=== PATIENT | female | born 1960 | race Caucasian/White ===

== ENCOUNTER 2023-09-10 06:40 | Day surgery (SDC) | payer MEDICARE, OTHER, SELFPAY ==
[2023-09-10 10:59] VITALS: BMI 29.7
[2023-09-10 11:00] VITALS: BMI 29.7
[2023-09-10 11:01] VITALS: BP 128/75
[2023-09-10 12:46] VITALS: BP 103/66
[2023-09-10 13:00] VITALS: BP 116/72
[2023-09-10 13:15] VITALS: BP 103/50
== END 2023-09-10 13:31 | disposition home or self-care (01) ==
LOC: SDS 06:40
PROVIDERS: ATTENDING PHYSICIAN Internal Medicine Gastroenterology
DX: K31.5 Obstruction of duodenum (principal); K22.2 Esophageal obstruction
CPT/HCPCS: 43245; C1726

== ENCOUNTER → 2023-10-08 09:38 | Outpatient (REF) | payer MEDICARE, OTHER, SELFPAY | LOC: RAD 09:38 | PROVIDERS: ATTENDING PHYSICIAN Family Medicine | DX: R91.1 Solitary pulmonary nodule (principal) | CPT/HCPCS: 71250 ==

== ENCOUNTER → 2023-10-12 10:39 | Outpatient (REF) | payer MEDICARE, OTHER, SELFPAY | LOC: RCS 10:39 | PROVIDERS: ATTENDING PHYSICIAN Family Medicine | DX: R06.09 Other forms of dyspnea (principal) | CPT/HCPCS: 93306 ==

== ENCOUNTER 2023-10-12 12:54 | Emergency (ER) | payer MEDICARE, OTHER, SELFPAY ==
[2023-10-12 13:08] VITALS: BP 155/97
--- NOTE | 2023-10-12 16:03 | ED.GENMED ---
History of Present Illness
General
Chief Complaint: Head Injury
Source: patient and family
Exam Limitations: none
Time Seen by Provider: 10/12/23 15:04
Nursing documentation reviewed up to this point in time: agreed with
Travel History
Have you had any contact with someone who has COVID-19?: No
Do you have any symptoms of coronavirus? Fever > 100 degrees, chills, cough, shortness of breath, sore throat, loss of taste or smell, muscle aches, or headache?: No
History of Present Illness
History of Present Illness:
62-year-old female with past medical history of CAD hypertension hyperlipidemia presenting to the emergency department today after falling hitting the back of her head when she was out drinking has had a headache since also has felt lightheaded and
somewhat weak irritable. Denies numbness weakness chest pain shortness of breath.
Past History
Past History
ED Past Medical History: CAD (Nonocclusive CAD, 2011 done for ischemic changes), Cancer (Skin cancer), GERD, HTN, Hypercholesterolemia, Psychiatric (Depression) and Other (Past history history of C. difficile colitis. Headaches/Migraines, Barretts
esophagus, Ulcers, Anemia, )
ED Past Surgical History: Gynecological
Social History
Tobacco: Former smoker
Alcohol: Occasional
Personal:
Living: with family
Family History
Family History: Other
Review of Systems
Review of Systems
Allergies reviewed?: Yes
All Other Systems: ROS reviewed and negative except as documented in HPI and ROS
Phy Exam
Physical Exam
Physical Exam:
GENERAL: Alert , in no apparent distress
EYE: pupils equal and reactive
NECK: Supple, no significant adenopathy.
ENT: o/p clr, mmm.
CARDIAC: Regular rate and rhythm .
LUNGS: Clear breath sounds bilaterally, no acute respiratory distress, no wheezes/rales/rhonchi
ABDOMEN: Soft, without focal tenderness, no r/g, no cvat
NEUROLOGICAL: Alert and oriented, no focal neuro deficits
SKIN: Warm and dry, skin intact.
MUSCULOSKELETAL: No edema, well perfused.
PSYCH: Normal and appropriate interaction.
Course
Orders/Labs/Results
Orders:
Orders
10/12/23 13:[address] [CT Head W/o Iv Contrast] Urgent
Comment:
Reason For Exam: head injury
Vital Signs
Initial and Last Documented VS:
Initial Vital Signs
Temp Pulse Resp BP Pulse Ox
98.4 F 76 16 155/97 98
10/12/23 13:08 10/12/23 13:08 10/12/23 13:08 10/12/23 13:08 10/12/23 13:08
Last Documented Vital Signs
Temp Pulse Resp BP Pulse Ox
98.4 F 76 16 155/97 98
10/12/23 13:08 10/12/23 13:08 10/12/23 13:08 10/12/23 13:08 10/12/23 13:08
MDM/Problems Addressed
MDM/Problems Addressed:
62-year-old female presenting to the emergency department 2 days after mechanical fall where she hit the back of her head potentially brief loss of consciousness has had a headache since. CT scan without emergent findings. Patient does have
symptoms that are likely consistent with a mild concussion. Patient given instructions for proper treatment of this and given return precautions.
*Critical Care Note
Total Time (30-74mins, 75-104mins- exclusive of procedures): Not Applicable
ED Attending Note
-
Portions of this chart may have been created with voice recognition software.� Occasional wrong word or��sound alike� substitutions may have occurred due to the inherent limitations of voice recognition software.
Discharge Plan
Departure
Patient Disposition: Home (Routine Discharge)
Date of Disposition: 10/12/23
Time of Disposition: 16:04
Patient with high blood pressure during this ER visit?: No
Condition: Good
Covid-19: Not Applicable
Discharge Problem:
Mild TBI (traumatic brain injury)
Instructions: Concussion, Adult (DC)
Prescriptions:
No Action
atorvastatin 80 mg Tablet
80 mg PO HS
alprazolam 0.5 mg Tablet
0.5 mg PO TID
omeprazole 20 mg Capsule,Delayed Release(Dr/Ec)
20 mg PO DAILY
losartan 100 mg Tablet
100 mg PO DAILY
bupropion HCl 300 mg Tablet Extended Release 24 Hr
300 mg PO DAILY
duloxetine 60 mg Capsule,Delayed Release(Dr/Ec)
60 mg PO DAILY
fenofibrate nanocrystallized 145 mg Tablet
145 mg PO DAILY
metoprolol succinate 100 mg Capsule,Sprinkle,Er 24hr
100 mg PO DAILY
iron
65 mg PO DAILY
Hctz
25 mg PO DAILY
Referrals:
Ana Tucker DO [Family Provider] -
Activity Restrictions/Additional Instructions:
You came to the emergency department today after hitting her head. Here you had a normal CT scan and reassuring physical examination. You have symptoms consistent with a mild concussion. Please rest and slowly increase activity over the next few
days and follow-up closely with the primary care doctor within 1 week. Return to the emergency department any worsening, new or concerning symptoms.
Interventions
Interventions:
*Risk Screen - Suicide Last Done: 10/12/23 13:08
*General Assessment Last Done: 10/12/23 13:08
*Neglect/Abuse Screening Last Done: 10/12/23 13:08
*ED COVID-19 Vaccine History Last Done: 10/12/23 13:08
*Nursing Disposition Last Done: 10/12/23 16:44
ED- Neurological Assessment Last Done: 10/12/23 15:03
ED-Skin Assessment Last Done: 10/12/23 15:03
Discharge Date and Time
Discharge Date/Time: 10/12/23 16:44
Print Language: BAHAMIAN
== END 2023-10-12 16:44 | disposition home or self-care (01) ==
LOC: EMR 12:54
PROVIDERS: EMERGENCY PHYSICIAN Emergency Medicine; FAMILY PHYSICIAN Family Medicine
DX: S06.9X1A Unspecified intracranial injury with loss of consciousness of 30 minutes or less, initial encounter (principal); W19.XXXA Unspecified fall, initial encounter; I25.10 Atherosclerotic heart disease of native coronary artery without angina pectoris; I10 Essential (primary) hypertension; E78.00 Pure hypercholesterolemia, unspecified
CPT/HCPCS: 99284; 70450

== ENCOUNTER → 2023-10-13 14:38 | Outpatient (REF) | payer MEDICARE, OTHER, SELFPAY | LOC: HWRAD 14:38 | PROVIDERS: ATTENDING PHYSICIAN Internal Medicine Cardiovascular Disease; FAMILY PHYSICIAN Family Medicine | DX: E78.5 Hyperlipidemia, unspecified (principal) | CPT/HCPCS: 75571 ==

== ENCOUNTER → 2024-01-14 08:34 | Outpatient (REF) | payer MEDICARE, OTHER, SELFPAY ==
[2024-01-14 12:14] LABS: Direct Bilirubin 0.2 mg/dl (0.0-0.4)
[2024-01-14 12:30] LABS: ALT (SGPT) 44 U/L (0-35); AST (SGOT) 41 U/L (14-36); Albumin 4.5 g/dl (3.5-5.0); Alkaline Phosphatase 64 U/L (38-126); HDL Cholesterol 41 mg/dl; LDL Cholesterol, Calculated 49 mg/dl; Total Bilirubin 0.5 mg/dl (0.2-1.3); Total Cholesterol 134 mg/dl (50-199); Total Protein 7.2 g/dl (6.3-8.2); Triglyceride 220 mg/dl (10-149); Very Low Density Lipoprotein 44 mg/dl (0-30)
== END ==
LOC: HWLAB 08:34
PROVIDERS: ATTENDING PHYSICIAN Internal Medicine Cardiovascular Disease; FAMILY PHYSICIAN Family Medicine
DX: E78.5 Hyperlipidemia, unspecified (principal)
CPT/HCPCS: 36415; 80061; 80076

== ENCOUNTER → 2024-03-17 08:01 | Outpatient (REF) | payer MEDICARE, OTHER, SELFPAY | LOC: DHCBC/DCA 08:01 | PROVIDERS: ATTENDING PHYSICIAN Internal Medicine Cardiovascular Disease; FAMILY PHYSICIAN Family Medicine | DX: R94.31 Abnormal electrocardiogram [ECG] [EKG] (principal) | CPT/HCPCS: 78452; 93017; A9500; J2785 ==

== ENCOUNTER 2024-05-17 20:51 | Emergency (ER) | payer MEDICARE, OTHER, SELFPAY ==
[2024-05-17 20:54] VITALS: BP 118/70
--- NOTE | 2024-05-17 21:23 | ED.GENMED ---
History of Present Illness
General
Chief Complaint: Jaw Pain
Source: patient
Exam Limitations: none
Time Seen by Provider: 05/17/24 21:21
Nursing documentation reviewed up to this point in time: agreed with
History of Present Illness
History of Present Illness:
63-year-old female with history of migraines, CAD, HTN, HLD, GERD, Mazariegos's esophagus, anemia, depression presents stating she went to take a bite of cake and had to let it fall out of her mouth as she could not close her left TMJ. She does have a
habit of clenching her teeth, she has had left-sided neck muscular pain for the past week. She denies pain with swallowing. She denies any dental problems/infections
40 yrs ago had several similar episodes, needed cortisone injections, into TMJ, etc.
Past History
Past History
ED Past Medical History: CAD (Nonocclusive CAD, 2011 done for ischemic changes), Cancer (Skin cancer), GERD, HTN, Hypercholesterolemia, Psychiatric (Depression) and Other (Past history history of C. difficile colitis. Headaches/Migraines, Mazariegos's
esophagus, Ulcers, Anemia, )
ED Past Surgical History: Gynecological and Orthopedic
Social History
Tobacco: Former smoker
Alcohol: Occasional
Personal:
Living: with family
Family History
Family History: Other
Review of Systems
Review of Systems
Allergies reviewed?: Yes
All Other Systems: ROS reviewed and negative except as documented in HPI and ROS
Constitutional: Denies fever
EENT: Reports mouth pain (L TMJ, can't open mouth all the way); Denies sore throat
Respiratory: Denies trouble breathing
Cardiac: Denies chest pain
ABD/GI: Denies abdominal pain or nausea
Musculoskeletal: Reports neck pain (Left side neck muscles sore past week.)
Skin: Reports no symptoms
Neurological: Denies headache or numbness
Phy Exam
Physical Exam
Physical Exam:
GENERAL: No acute distress. A&Ox3.
CONSTITUTIONAL: Afebrile.
EYES: clear, conjunctivae normal
Neck: Supple, no lymphadenopathy,
ENMT: moist mucus membranes, cannot open more than 20 mm, able to close completely, tender over L TMJ, no crepitus, TMs normal, good dentition, no palpable gum abscess
RESPIRATORY: Regular respirations, nonlabored, lungs clear.
CARDIOVASCULAR: Regular rate and rhythm, no murmurs, no rubs.
MUSCULOSKELETAL: Full Rom of neck. Mild tenderness L paracervical and sternocleidomastoid muscles. Moves with ease. Well perfused.
SKIN: Warm, dry, pink
PSYCH: Normal mood and affect. Well kept, interactive and appropriate
NEUROLOGIC: Awake, alert and oriented. No focal neurological deficits
Course
Orders/Labs/Results
Orders:
Orders
05/17/24 21:50
Diazepam [Valium] 5 mg PO NOW STA
Vital Signs
Initial and Last Documented VS:
Initial Vital Signs
Pulse Resp BP Pulse Ox
93 19 118/70 97
05/17/24 20:54 05/17/24 20:54 05/17/24 20:54 05/17/24 20:54
Last Documented Vital Signs
Temp Pulse Resp BP Pulse Ox
97.7 F 93 19 118/70 97
05/17/24 21:54 05/17/24 20:54 05/17/24 20:54 05/17/24 20:54 05/17/24 20:54
MDM/Problems Addressed
Differential Diagnosis Includes:
TMJ, dental abscess, cervical strain
MDM/Problems Addressed:
63-year-old female with history of migraines, CAD, HTN, HLD, GERD, Mazariegos's esophagus, anemia, depression presents stating she went to take a bite of cake and had to let it fall out of her mouth as she could not close her left TMJ. She does have a
habit of clenching her teeth, she has had left-sided neck muscular pain for the past week. She denies pain with swallowing. She denies any dental problems/infections
40 yrs ago had several similar episodes, needed cortisone injections, into TMJ, etc.
Afebrile, NAD
Hx and exam consistent with mild left cervical muscle strain, left TMJ
Pt can't open it more than 20 mm. she is able to close mouth comfortably.
Is in no distress.
Plan: Gave Valium, she will take Ibuprofen at home. She is not uncomfortable. Pain is 'achy' Closes mouth comfortably. She is comfortable going home.
Referred to oral surgeon if needed
She will call her dentist tomorrow
Discussed with Dr. Aguillon who agrees with assessment and plan
*Critical Care Note
Total Time (30-74mins, 75-104mins- exclusive of procedures): Not Applicable
ED Attending Note
-
Portions of this chart may have been created with voice recognition software.� Occasional wrong word or��sound alike� substitutions may have occurred due to the inherent limitations of voice recognition software.
Discharge Plan
Departure
Patient Disposition: Home (Routine Discharge)
Date of Disposition: 05/17/24
Time of Disposition: 21:51
Patient with high blood pressure during this ER visit?: No
Condition: Fair
Discharge Problem:
TMJ arthralgia
Instructions: Temporomandibular Joint (TMJ) Disorders (DC)
Prescriptions:
No Action
atorvastatin 80 mg Tablet
80 mg PO HS
alprazolam 0.5 mg Tablet
0.5 mg PO TID
omeprazole 20 mg Capsule,Delayed Release(Dr/Ec)
20 mg PO DAILY
losartan 100 mg Tablet
100 mg PO DAILY
bupropion HCl 300 mg Tablet Extended Release 24 Hr
300 mg PO DAILY
duloxetine 60 mg Capsule,Delayed Release(Dr/Ec)
60 mg PO DAILY
metoprolol succinate 100 mg Capsule,Sprinkle,Er 24hr
100 mg PO DAILY
iron
65 mg PO DAILY
Hctz
25 mg PO DAILY
docusate sodium [Colace] 100 mg Capsule
100 mg PO DAILY
ezetimibe [Zetia] 10 mg Tablet
10 mg PO DAILY
icosapent ethyl [Vascepa] 1 gram Capsule
2 g PO BID
Referrals:
Justo Cardenas DMD, MD [Active] - Next open appointment
Ana Tucker DO [Family Provider] -
Activity Restrictions/Additional Instructions:
As we discussed, take ibuprofen 600 mg when you get home.
I gave you the name of oral surgeon to contact if needed
Call your dentist tomorrow to see who he recommends for this problem.
Interventions
Interventions:
*Risk Screen - Suicide Last Done: 05/17/24 20:54
*General Assessment Last Done: 05/17/24 20:54
*Neglect/Abuse Screening Last Done: 05/17/24 20:54
ED- Fall Risk Assessment Last Done: 05/17/24 21:47
*ED COVID-19 Vaccine History Last Done: 05/17/24 21:56
*Nursing Disposition Last Done: 05/17/24 21:56
ED-EENT Assessment Last Done: 05/17/24 21:47
ED- Cardiac Assessment Last Done: 05/17/24 21:47
Discharge Date and Time
Discharge Date/Time: 05/17/24 21:57
Print Language: MACEDONIAN
[2024-05-17 21:47] VITALS: BMI 32.3
[2024-05-17] MEDS: VALIUM 5 MG PO (21:54)
== END 2024-05-17 21:57 | disposition home or self-care (01) ==
LOC: EMR 20:51
PROVIDERS: EMERGENCY PHYSICIAN Emergency Medicine; FAMILY PHYSICIAN Family Medicine
DX: M26.629 Arthralgia of temporomandibular joint, unspecified side (principal); I25.10 Atherosclerotic heart disease of native coronary artery without angina pectoris; I10 Essential (primary) hypertension; E78.00 Pure hypercholesterolemia, unspecified; K21.9 Gastro-esophageal reflux disease without esophagitis; K22.70 Barrett's esophagus without dysplasia; D64.9 Anemia, unspecified; F32.A Depression, unspecified; Z85.828 Personal history of other malignant neoplasm of skin; Z86.19 Personal history of other infectious and parasitic diseases; Z87.19 Personal history of other diseases of the digestive system; Z87.891 Personal history of nicotine dependence
CPT/HCPCS: 99282

== ENCOUNTER → 2024-06-01 13:44 | Outpatient (REF) | payer MEDICARE, OTHER, SELFPAY | LOC: HWWDC 13:44 | PROVIDERS: ATTENDING PHYSICIAN Family Medicine | DX: Z12.31 Encounter for screening mammogram for malignant neoplasm of breast (principal) | CPT/HCPCS: 77063; 77067 ==

== ENCOUNTER → 2024-09-02 10:52 | Outpatient (REF) | payer MEDICARE, OTHER, SELFPAY | LOC: HWRAD 10:52 | PROVIDERS: ATTENDING PHYSICIAN Physician Assistant Medical | DX: M54.2 Cervicalgia (principal) | CPT/HCPCS: 72050 ==

== ENCOUNTER → 2025-01-16 14:04 | Outpatient (REF) | payer MEDICARE, OTHER, SELFPAY | LOC: HWRAD 14:04 | PROVIDERS: ATTENDING PHYSICIAN Family Medicine | DX: M81.0 Age-related osteoporosis without current pathological fracture (principal) | CPT/HCPCS: 77080 ==

== ENCOUNTER → 2025-02-14 09:12 | Outpatient (REF) | payer MEDICARE, OTHER, SELFPAY ==
[2025-02-14 11:57] LABS: ALT (SGPT) 46 U/L (0-35); AST (SGOT) 36 U/L (14-36); Albumin 4.3 g/dl (3.5-5.0); Alkaline Phosphatase 57 U/L (38-126); Total Protein 6.7 g/dl (6.3-8.2)
== END ==
LOC: HWRAD 09:12
PROVIDERS: ATTENDING PHYSICIAN Internal Medicine Gastroenterology; FAMILY PHYSICIAN Family Medicine
DX: K21.9 Gastro-esophageal reflux disease without esophagitis (principal); R79.89 Other specified abnormal findings of blood chemistry
CPT/HCPCS: 36415; 76700; 80076

== ENCOUNTER → 2025-02-21 11:10 | Outpatient (REF) | payer MEDICARE, OTHER, SELFPAY | LOC: HWRCS 11:10 | PROVIDERS: ATTENDING PHYSICIAN Nuclear Medicine Nuclear Cardiology; FAMILY PHYSICIAN Family Medicine | DX: R06.09 Other forms of dyspnea (principal) | CPT/HCPCS: 93306 ==

== ENCOUNTER → 2025-03-01 11:35 | Outpatient (REF) | payer MEDICARE, OTHER, SELFPAY ==
[2025-03-01 17:04] LABS: Iron 103 ug/dl (37-170)
[2025-03-01 17:13] LABS: Total Iron Binding Capacity 270 ug/dl (265-497)
[2025-03-01 17:38] LABS: Ferritin 289.0 ng/ml (11.1-264.0)
[2025-03-02 18:31] LABS: Hepatitis B Surface Antigen Negative (Negative)
[2025-03-02 18:48] LABS: Hepatitis C Antibody Negative (Negative)
[2025-03-04 05:05] LABS: Mitochondrial M2 Ab, IgG 5.1 Units (0.0-24.9)
== END ==
LOC: HWLAB 11:35
PROVIDERS: ATTENDING PHYSICIAN Internal Medicine Gastroenterology; FAMILY PHYSICIAN Family Medicine
DX: R79.89 Other specified abnormal findings of blood chemistry (principal)
CPT/HCPCS: 36415; 82103; 82104; 82390; 82728; 82784; 83516; 83540; 83550; 86015; 86231; 86258; 86381; 86706; 86803; 87340

== ENCOUNTER → 2025-03-08 13:00 | Outpatient (REF) | payer MEDICARE, OTHER, SELFPAY | LOC: HWCARD 13:00 | PROVIDERS: ATTENDING PHYSICIAN Physical Medicine & Rehabilitation; FAMILY PHYSICIAN Family Medicine | DX: Z01.818 Encounter for other preprocedural examination (principal) | CPT/HCPCS: 93005 ==

== ENCOUNTER → 2025-03-13 13:38 | Outpatient (REF) | payer MEDICARE, OTHER, SELFPAY | LOC: HWLAB 13:38 | PROVIDERS: ATTENDING PHYSICIAN Internal Medicine Gastroenterology; FAMILY PHYSICIAN Family Medicine | DX: E83.19 Other disorders of iron metabolism (principal) | CPT/HCPCS: 36415; 81256 ==

== ENCOUNTER → 2025-03-20 13:52 | Outpatient (REF) | payer MEDICARE, OTHER, SELFPAY | LOC: HWRAD 13:52 | PROVIDERS: ATTENDING PHYSICIAN Family Medicine | DX: Z87.891 Personal history of nicotine dependence (principal) | CPT/HCPCS: 71271 ==

== ENCOUNTER → 2025-05-04 11:23 | Outpatient (REF) | payer MEDICARE, OTHER, SELFPAY | LOC: HWRCS 11:23 | PROVIDERS: ATTENDING PHYSICIAN Nuclear Medicine Nuclear Cardiology; FAMILY PHYSICIAN Family Medicine | DX: I25.10 Atherosclerotic heart disease of native coronary artery without angina pectoris (principal); R06.09 Other forms of dyspnea; R55 Syncope and collapse | CPT/HCPCS: 78452; 93017; A9500; J2785 ==